=== PATIENT | male | born 1990 | race African-American/Black ===

== ENCOUNTER 2017-12-03 22:42 | Emergency (ER) | payer SELFPAY ==
[~2017-12-03] VITALS: Ht 170.2 cm; Wt 72.6 kg
--- NOTE | 2017-12-03 23:35 | NUR ---
MSE DONE BY DR JOYNER AT BEDSIDE ROOM 04A. PATIENT A & O X4
--- NOTE | 2017-12-03 23:50 | NUR ---
Patient discharged to home in stable conditon. Written and verbal after care instructions given. Patient verbalizes understanding of instructions.
[2017-12-03 23:56] VITALS: BP 115/69
== END 2017-12-03 23:59 | disposition home or self-care (01) ==
LOC: ER 22:42
DX: R59.9 Enlarged lymph nodes, unspecified (principal); J02.9 Acute pharyngitis, unspecified; B34.9 Viral infection, unspecified; Z71.6 Tobacco abuse counseling; J45.909 Unspecified asthma, uncomplicated; F17.210 Nicotine dependence, cigarettes, uncomplicated
CPT/HCPCS: A4663

== ENCOUNTER 2019-01-23 18:25 | Emergency (ER) | payer SELFPAY ==
[~2019-01-23] VITALS: Ht 172.7 cm; Wt 72.6 kg
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
[2019-01-23] MEDS ORDERED: TDAP DIPH,PERTUSS,TET VAC/PF 0.5 ML DISP.SYRIN IM ONE ×3 (19:45→20:06)
[2019-01-23] MEDS ORDERED: ONDANSETRON ODT 4 MG TAB.RAPDIS SL ONE (20:00)
[2019-01-23] MEDS ORDERED: OXYCODONE/APAP 5-325 MG TABLET PO ONE (20:00)
[2019-01-23] MEDS ORDERED: ONDANSETRON ODT 4 MG TAB.RAPDIS ONE (20:10)
[2019-01-23] MEDS ORDERED: OXYCODONE/APAP 5-325 MG TABLET ONE (20:11)
--- NOTE | 2019-01-23 20:20 | NUR ---
Patient discharged to home in stable conditon. Written and verbal after care instructions given. Patient verbalizes understanding of instructions. Ambulated with stable gait using crutches.
[2019-01-23 20:33] VITALS: BP 118/90
== END 2019-01-23 20:34 | disposition home or self-care (01) ==
LOC: ER 18:30
DX: S80.01XA Contusion of right knee, initial encounter (principal); J45.909 Unspecified asthma, uncomplicated; F17.210 Nicotine dependence, cigarettes, uncomplicated; Z71.6 Tobacco abuse counseling; V00.131A Fall from skateboard, initial encounter; Y93.51 Activity, roller skating (inline) and skateboarding; Y92.89 Other specified places as the place of occurrence of the external cause; Y99.8 Other external cause status
CPT/HCPCS: 90715; A4663; Q0162

== ENCOUNTER 2020-10-26 15:05 | Emergency (ER) | payer SELFPAY ==
--- NOTE | 2020-10-26 15:38 | NUR ---
called no answer
--- NOTE | 2020-10-26 15:41 | NUR ---
called no anwer
--- NOTE | 2020-10-26 15:45 | NUR ---
called no answer
== END 2020-10-26 15:46 | disposition left against medical advice (07) ==
LOC: ER 15:05
DX: Z53.21 Procedure and treatment not carried out due to patient leaving prior to being seen by health care provider (principal)

== ENCOUNTER 2021-11-24 16:58 | Emergency (ER) | payer MEDICAID, OTHER ==
[~2021-11-24] VITALS: Ht 172.7 cm; Wt 72.6 kg
[2021-11-24] MEDS ORDERED: IBUP-1953 PO (17:08)
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
--- NOTE | 2021-11-24 17:15 | NUR ---
EDMD at bedside assessing pt condition. performing phy. exam.
--- NOTE | 2021-11-24 17:25 | NUR ---
EDMD at bedside discussing dispo with pt.
--- NOTE | 2021-11-24 17:30 | NUR ---
Pt given dc instructions, and pt confirmed understanding. Pt advized to invest in a better pillow and to go get a message for some relief. VSS, NAD, PE WNL. pt signed out and walked out of dept with steady gait.
[2021-11-24 18:30] VITALS: BP 130/78
== END 2021-11-24 17:30 | disposition home or self-care (01) ==
LOC: ER 17:00
DX: M43.6 Torticollis (principal); J45.909 Unspecified asthma, uncomplicated; Z72.0 Tobacco use
CPT/HCPCS: A4663

== ENCOUNTER 2022-05-21 16:10 | Emergency (ER) | payer MEDICAID ==
[~2022-05-21] VITALS: Ht 172.7 cm; Wt 74.8 kg
[~2022-05-21 16:10] MED LIST: IBUP-1953 PO
[2022-05-21] MEDS ORDERED: HYDROMORPHONE HCL 2 MG TABLET PO ONE (18:45)
[2022-05-21] MEDS ORDERED: ONDANSETRON ODT 4 MG TAB.RAPDIS SL ONE (18:45)
[2022-05-21] MEDS ORDERED: HYDROMORPHONE HCL 2 MG TABLET ONE (19:39)
[2022-05-21] MEDS ORDERED: ONDANSETRON ODT 4 MG TAB.RAPDIS ONE (19:39)
[2022-05-21] MEDS ORDERED: HYDR-4209 PO (20:53)
--- NOTE | 2022-05-21 21:13 | NUR ---
Patient discharged to home in stable condition. Written and verbal after care instructions given. Instructed patient not to drive. Patient verbalizes understanding of instructions. Stressed follow up or return to ER for worsening s/s.
[2022-05-21 21:26] VITALS: BP 115/71
== END 2022-05-21 21:29 | disposition home or self-care (01) ==
LOC: ER 16:10
DX: S83.92XA Sprain of unspecified site of left knee, initial encounter (principal); S73.102A Unspecified sprain of left hip, initial encounter; X50.0XXA Overexertion from strenuous movement or load, initial encounter; Y93.72 Activity, wrestling; Y92.89 Other specified places as the place of occurrence of the external cause; F17.210 Nicotine dependence, cigarettes, uncomplicated; J45.909 Unspecified asthma, uncomplicated
CPT/HCPCS: 72192; 73502; A4663; Q0162